=== PATIENT | female | born 1975 | race Caucasian/White ===

== ENCOUNTER 2018-06-10 21:38 | Emergency (ER) | payer BC ==
[~2018-06-10] VITALS: Ht 165.1 cm; Wt 78.9 kg
[2018-06-10 21:41] VITALS: Ht 165.1 cm; Wt 78.9 kg
[2018-06-10 23:26] VITALS: BP 133/81
== END 2018-06-10 23:26 | disposition home or self-care (01) ==
LOC: ED 21:38
DX: S16.1XXA Strain of muscle, fascia and tendon at neck level, initial encounter (principal); S09.90XA Unspecified injury of head, initial encounter; R11.0 Nausea; H02.9 Unspecified disorder of eyelid; V89.2XXA Person injured in unspecified motor-vehicle accident, traffic, initial encounter; Y93.73 Activity, racquet and hand sports; Y92.89 Other specified places as the place of occurrence of the external cause; Y99.8 Other external cause status
CPT/HCPCS: Q0162

== ENCOUNTER 2019-02-13 18:34 | Emergency (ER) | payer BC ==
[~2019-02-13] VITALS: Ht 162.6 cm; Wt 72.6 kg
[2019-02-13 18:42] VITALS: Ht 162.6 cm; Wt 72.6 kg
[2019-02-13 20:51] VITALS: BP 108/57
== END 2019-02-13 20:51 | disposition home or self-care (01) ==
LOC: ED 18:34
DX: S16.1XXA Strain of muscle, fascia and tendon at neck level, initial encounter (principal); S49.91XA Unspecified injury of right shoulder and upper arm, initial encounter; V43.52XA Car driver injured in collision with other type car in traffic accident, initial encounter; Y93.I9 Activity, other involving external motion; Y92.413 State road as the place of occurrence of the external cause; Y99.8 Other external cause status